=== PATIENT | female | born 1930 | race Caucasian/White ===

== ENCOUNTER 2019-01-09 15:15 | Inpatient (IN) ==
[2019-01-09] MEDS ORDERED: ALBUTEROL SULFATE 2.5 MG/0.5 ML VIAL.NEB IH PRN (16:30)
[2019-01-09] MEDS ORDERED: OXYGEN AIR DELIVERY SYSTEMS DEVICE SCH (16:30)
[2019-01-09] MEDS ORDERED: ceFAZolin SODIUM 1 GM VIAL IM ONE (16:49)
[2019-01-09 16:58] LABS: Hematocrit 36.5 % (37.0-47.0); Hemoglobin 12.3 gm/dL (12.5-16.0); Mean Cell Volume 94.1 fl (78-100); Mean Corpuscular Hemoglobin 31.7 pg (27-31); Mean Corpuscular Hgb Conc 33.7 g/dl (32-36); Mean Platelet Volume 10.3 fl (8-12.5); Neutrophil # 8.6 K/mm3 (1.3-6.0); Neutrophil % 72.8 % (42-75.0); Platelet Count 258 K/mm3 (150-450); Red Blood Count 3.88 M/mm3 (4.2-5.4); Red Cell Distribution Width 14.6 % (11.5-14.0); White Blood Count 11.8 K/mm3 (4.0-10.5)
[2019-01-09] MEDS ORDERED: CEFAZOLIN SODIUM IV SCH ×2 (17:00)
[2019-01-09] MEDS ORDERED: WATER IV SCH ×2 (17:00)
[2019-01-09] MEDS ORDERED: DEXTROSE 5% IV SCH ×2 (17:00)
[2019-01-09 17:11] LABS: INR 2.89 INR (0.92-1.08); Prothrombin Time (Patient) 27.5 Seconds (9.1-10.7)
--- NOTE | 2019-01-09 17:20 | HP ---
Chief Complaint - Chief Complaint Date of Service: 01/09/19 Time of Service: 17:07 Chief Complaint: Infection in legs History of Present Illness: 88-year-old female with past medical history of morbid obesity, hypertension, CHF, superficial stasis ulcers, peripheral vascular disease, DVT, PE, was seen in the wound clinic for her regular appointment for wound care of superficial lower extremity ulcers and was found to have worsening signs of infection of her lower extremities with superior eating ulcers with drainage of foul odorous fluid and accompanying significant erythema that extends from her ankles to her suprapatellar region. Patient was also noted to have significant pedal edema all the way up to her knees and tenderness to palpation. Patient is treated regularly for the ulcers in her lower extremities but was noted to have these signs and symptoms on Monday when she came in for routine treatment. Patient was started on antibiotics but today was noted that she actually got worse and is now complaining of pain in the extremities. She denies fever or chills or any other symptoms besides the pain in her extremities. It was explained to patient that at home treatment would not be adequate to treat such as significant infection and she was convinced to be placed inpatient for IV antibiotics. Medical History (Updated 01/07/19 @ 16:29 by PATRICIA Mattson) Pulmonary embolism (Resolved) Onset Date: ~2002 DVT Pulmonary embolism (Chronic) Onset Date: ~2000 Hypertension (Chronic) Onset Date: Unknown Hyperlipidemia (Chronic) Onset Date: Unknown H/O gastroesophageal reflux (GERD) (Chronic) Onset Date: Unknown Diabetes mellitus (Chronic) Onset Date: ~2011 Type 2 Congestive heart failure (Chronic) Onset Date: Unknown venous insufficiency NI (obstructive sleep apnea) Onset Date: 06/16/15 auto CPAP [id number] Obesity Onset Date: ~2014 BMI 45- 2015 Osteoarthritis Onset Date: Unknown Surgical History: Surgical History (Updated 11/21/18 @ 15:25 by PATRICIA Mattson) Carpal tunnel syndrome Onset Date: Unknown right and left 12/2008, 05/2009 Colonoscopy planned Onset Date: ~[address] Mijares H/O dilation and curettage Onset Date: ~1960 H/O knee surgery Onset Date: Unknown History of appendectomy Onset Date: ~1988 History of cataract surgery Onset Date: ~2003 bilateral S/P right knee arthroscopy Onset Date: ~1996 Family History: Family History (Updated 03/12/18 @ 15:23 by Allie Holguin RN) Brother , Age 82 Myocardial infarction Brother Cancer Pancreatic Daughter Breast cancer, Onset Age: 47 Father Emphysema lung Smoking Mother , age 82 Cancer throat Heart problem Sister , age 60 Cancer lung and colon Son No problems noted. Social History: Patient Lives/Resources Home / son Utilized Occupation Retired Preferred Language Spanish Do you have any denominational or Yes: Evangelical cultural preference? Smoking Status Never smoker Have you smoked in the past 12 No months Abuse History No History of abuse Psych History No pertinent hx (Last Updated 11/22/18 @ 11:42 by Reena Bai MD) No Social History Section defined Peds Patient Hx - Developmental: No Pertinent Hx Peds Patient Hx - Medical: No Pertinent Hx Peds Patient Hx - Cardiac/Respiratory: No Pertinent Hx Peds Patient Hx - Surgical: No Surgical History Patient History - Cancer: No Hx of Cancer Review Of Systems (GEN) - Review of Systems Generalized/Overall Review: Present: No Symptoms Reported EENTM: Present: No Symptoms Reported Respiratory: Present: No Symptoms Reported Cardiac: Present: No Symptoms Reported Abdominal: Present: No Symptoms Reported Genitourinary: Present: No Symptoms Reported Musculoskeletal: Present: Joint Pain Neurological: Present: No Symptoms Reported Skin: Present: Lesions, Change in Color, Other - Draining ulcers in lower extremities with significant redness Endocrine: Present: No Symptoms Reported Immunizations: IMMUNIZATION HX Immunizations Up to Date Allergies/Adverse Reactions: Allergies Allergy/AdvReac Type Severity Reaction Status Date / Time ciprofloxacin [From Cipro] Allergy Nausea/Rash Verified 01/09/19 16:51 /Vertigo codeine Allergy Other Verified 01/09/19 16:51 ibuprofen [From Motrin] Allergy Verified 01/09/19 16:51 Sulfa (Sulfonamide Allergy Hives Verified 01/09/19 16:51 Antibiotics) Home Medications: HOME MEDICATIONS Acetaminophen [Tylenol] 650 mg PO Q6H PRN 10/06/15 [Last Taken Unknown] Cholecalciferol (Vitamin D3) [Vitamin D3] 5,000 unit PO DAILY 10/06/15 [Last Taken 09/17/18] Loratadine [Claritin] 10 mg PO DAILY 10/06/15 [Last Taken 09/17/18] albuterol sulfate 2.5 mg/3 mL (0.083 %) solution for nebulization 2.5 mg IH Q4H PRN 03/12/18 [Last Taken Unknown] calcium carbonate 300 mg (750 mg) chewable tablet 300 mg PO DAILY tab 03/12/18 [Last Taken Unknown] oxygen-air delivery systems device See Dose Instructions .ROUTE .MEDSUPPLY #1 03/12/18 [Last Taken Unknown] walker See Dose Instructions .ROUTE .MEDSUPPLY #1 ea 03/12/18 [Last Taken 09/17/18] denosumab 60 mg/mL subcutaneous syringe 60 mg SUB-Q [id number] #1 ml 05/16/18 [Last Taken Unknown] bupropion HCl XL 300 mg 24 hr tablet, extended release 300 mg PO DAILY #90 tab 06/18/18 [Last Taken 09/17/18] atorvastatin 20 mg tablet 20 mg PO DAILY #90 tab 08/17/18 [Last Taken 09/17/18] Metoprolol Succinate 25 mg PO HS 09/17/18 [Last Taken 09/16/18] warfarin 3 mg tablet 3 mg PO DAILY #30 tab 10/03/18 [Last Taken Unknown] warfarin 5 mg tablet 5 mg PO ONCE #1 tab 10/23/18 [Last Taken Unknown] warfarin 4 mg tablet 4 mg PO .QMWTHFSASU #30 tab 10/29/18 [Last Taken Unknown] famotidine 20 mg tablet See Rx Instructions .ROUTE .COMPLEX #60 tablet 11/14/18 [Last Taken Unknown] miconazole nitrate 2 % topical cream 1 applic TP BID #28 g 11/22/18 [Last Taken Unknown] furosemide 20 mg tablet See Rx Instructions .ROUTE .COMPLEX #30 tablet 12/14/18 [Last Taken Unknown] gabapentin 300 mg capsule See Rx Instructions .ROUTE .COMPLEX #60 capsule 12/14/18 [Last Taken Unknown] melatonin 5 mg tablet See Rx Instructions .ROUTE .COMPLEX #30 tab 12/14/18 [Last Taken Unknown] Levofloxacin [Levaquin] 500 mg PO DAILY #10 tab 01/07/19 [Last Taken Unknown] Exam - Exam Vital Signs: Vital Signs - Last Taken Temp 36.7 C 01/09/19 16:32 Pulse 92 01/09/19 16:32 Resp 14 01/09/19 16:32 BP 149/62 01/09/19 16:32 Pulse Ox 99 01/09/19 16:32 Constitutional: Present: Alert, Oriented x3, Cooperative, Well developed, Well nourished, No distress, Elderly, Morbidly obese ENT Exam: Present: normal ENT inspection, hearing grossly normal, pharynx normal, TMs normal Eye Exam: bilateral eye: normal inspection, PERRL, EOMI Neck: Present: non-tender, full range of motion, supple, normal inspection, trachea midline Back Exam: Present: normal inspection, no CVA tenderness, no vertebral tenderness Breasts: Present: Exam deferred Respiratory: Present: chest non-tender, lungs clear, normal breath sounds, no respiratory distress, no accessory muscle use Cardiovascular/Chest: Present: normal peripheral pulses, regular rate, rhythm, no chest tenderness, no edema, edema - Bilateral pedal edema 3+ Peripheral Pulses: carotid (R): 3+, carotid (L): 3+, femoral (R): 3+, femoral (L): 3+, dorsalis-pedis (R): 2+, dorsalis-pedis (L): 2+ Abdomen: Present: Normal bowel sounds, soft, nontender, nondistended, no rebound tenderness, no hepatospenomegaly, obese /Rectal: Present: Exam deferred Extremity: Present: inflammation, lower extremity edema, leg pain, pedal edema, slow capillary refill, swelling Skin Exam: Present: other - Bilateral superficial draining ulcers of lower extremities surrounded by significant erythema with foul odor. 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 nml as tested, normal cerebellar test, no motor/sensory deficits, alert, normal mood/affect, oriented x 3 Appearance: Present: appropriate appearance, appropriate insight, neat, no memory impairment Eye contact: Present: cooperative, good eye contact, normal speech Thoughts: Present: normal thought pattern, no apparent hallucination Diagnostic Studies: Abnormal Lab Results 01/09/19 Range/Units 16:40 WBC 11.8 H D (4.0-10.5) K/mm3 RBC 3.88 L (4.2-5.4) M/mm3 Hgb 12.3 L (12.5-16.0) gm/dL Hct 36.5 L (37.0-47.0) % MCH 31.7 H (27-31) pg RDW 14.6 H (11.5-14.0) % Immature Gran % (Auto) 0.70 H (0.001-0.429) % Immature Gran # (Auto) 0.08 H (0.000-0.0310) K/mm3 Lymphocytes % 14.3 L (20-51) % Monocytes % 10.8 H (0.0-9) % Neutrophils # 8.6 H (1.3-6.0) K/mm3 Monocytes # 1.3 H (0.0-1.0) k/mm3 Laboratory Results WBC 11.8 K/mm3 (4.0-10.5) H D 01/09/19 16:40 RBC 3.88 M/mm3 (4.2-5.4) L 01/09/19 16:40 Hgb 12.3 gm/dL (12.5-16.0) L 01/09/19 16:40 Hct 36.5 % (37.0-47.0) L 01/09/19 16:40 MCV 94.1 fl (78-100) 01/09/19 16:40 MCH 31.7 pg (27-31) H 01/09/19 16:40 MCHC 33.7 g/dl (32-36) 01/09/19 16:40 RDW 14.6 % (11.5-14.0) H 01/09/19 16:40 Plt Count 258 K/mm3 (150-450) 01/09/19 16:40 MPV 10.3 fl (8-12.5) 01/09/19 16:40 Immature Gran % (Auto) 0.70 % (0.001-0.429) H 01/09/19 16:40 Immature Gran # (Auto) 0.08 K/mm3 (0.000-0.0310) H 01/09/19 16:40 72.8 % (42-75.0) 01/09/19 16:40 14.3 % (20-51) L 01/09/19 16:40 10.8 % (0.0-9) H 01/09/19 16:40 1.1 % (0.0-3.0) 01/09/19 16:40 0.3 % (0.0-1.0) 01/09/19 16:40 Nucleated RBC % 0.0 k/mm3 (0-1) 01/09/19 16:40 8.6 K/mm3 (1.3-6.0) H 01/09/19 16:40 1.68 k/mm3 (1.5-3.5) 01/09/19 16:40 1.3 k/mm3 (0.0-1.0) H 01/09/19 16:40 0.1 k/mm3 (0.0-0.7) 01/09/19 16:40 Absolute Basophils 0.0 k/mm3 (0.0-0.1) 01/09/19 16:40 Assessment/Plan - Narrative Narrative: Patient was evaluated and medical chart was reviewed and decision to admit with a diagnosis of bilateral lower extremity cellulitis was taken. Patient will be treated with IV antibiotics per culture results. She is currently growing a gram-negative organism and beta-hemolytic strep therefore appropriate antibiotics were added to her treatment. Patient was also found to have acute renal failure superimposed on chronic kidney disease on her last labs, therefore we will treat her with IV fluids for maximum hydration at a controlled rate to avoid fluid overload. Labs have been ordered to evaluate WBCs and electrolytes as well as kidney function. We will wait for final culture results and adjust antibiotics accordingly. - Assessment/Plan (1) Bilateral lower leg cellulitis Problem: Acute (2) Acute renal failure Problem: Acute (3) Chronic kidney disease (CKD) Problem: Acute (4) Diabetes mellitus Problem: Chronic Qualifiers:
[2019-01-09 17:29] LABS: Albumin * 2.6 gm/dl (3.4-5.0); Anion Gap 17.5 mmol/L (6.8-13.8); BUN/Creatinine Ratio 16.7 (9.0-21.6); Bilirubin, Total 0.6 mg/dL (0.0-1.1); Ca. Corrected For Albumin 9.5 mg/dL (8.4-10.2); Calcium * 8.7 mg/dL (7.9-10.9); Carbon Dioxide 21.3 mmol/L (24-32.6); Potassium 4.8 mmol/L (3.4-4.6); Vancomycin Trough 0.1 mcg/mL (10.0-20.0)
[2019-01-09 17:31] LABS: CRP 17.4 mg/dL (0.0-0.9)
--- NOTE | 2019-01-09 19:09 | ANES ---
Anesthesia Procedure Note Procedure Note: ANESTHESIA PROCEDURE NOTE Date of Procedure: 01/09/2019 Time of procedure: 1830. Performed by: DILCIA Chiu CRNA, MSN Preprocedure diagnosis: Cellulitis. Post procedure diagnosis: Same. Procedure: Venipuncture for IV access. Indications: Cellulitis, lack of IV access. Findings: See below. Details of the procedure: The patient was prepped with Betadine and alcohol, 0.1 mL of 1% lidocaine solution was injected at the intended IV site. A number 22- gauge was started in the left hand and flushed with saline solution. A request was given for a larger IV if possible, and the procedure was repeated on the right hand using a 20-gauge IV. EBL: Minimal. Fluids: N/A. Specimen: N/A. Post procedure condition: The patient tolerated the procedure well. No complications were noted. Thank you for this consultation. Eliu Austin CRNA, DILCIA, MSN
[2019-01-09] MEDS: NORMAL SALINE 1,000 ML IV PRN (19:30)
[2019-01-09] MEDS: traMADol HCL 50 MG TABLET PO PRN (20:38)
[2019-01-09] MEDS: VANCOMYCIN HCL 1 GM in DEXTROSE 5 % IN WATER 250 ML IV SCH ×2 (20:38)
[2019-01-09] MEDS: ACETAMINOPHEN 325 MG TABLET PO PRN (20:38)
[2019-01-09] MEDS: WARFARIN SODIUM 4 MG TABLET PO SCH (20:39)
[2019-01-09] MEDS: GABAPENTIN 300 MG CAPSULE PO SCH (20:40)
[2019-01-09] MEDS: METOPROLOL SUCCINATE 25 MG TABLET.SA PO SCH (20:40)
[2019-01-09] MEDS ORDERED: MICONAZOLE NITRATE TP SCH (21:00)
[2019-01-10 06:16] LABS: Albumin * 2.1 gm/dl (3.4-5.0); Anion Gap 12.1 mmol/L (6.8-13.8); BUN/Creatinine Ratio 17.3 (9.0-21.6); Bilirubin, Total 0.6 mg/dL (0.0-1.1); Ca. Corrected For Albumin 9.5 mg/dL (8.4-10.2); Calcium * 8.3 mg/dL (7.9-10.9); Carbon Dioxide 25.5 mmol/L (24-32.6); Potassium 4.6 mmol/L (3.4-4.6)
[2019-01-10] MEDS: ACETAMINOPHEN 325 MG TABLET PO PRN ×3 (07:27→20:59)
[2019-01-10] MEDS: buPROPion HCL 150 MG TAB.SR.24H PO SCH (09:26)
[2019-01-10] MEDS: LORATADINE 10 MG TABLET PO SCH (09:26)
[2019-01-10] MEDS: DOCUSATE SODIUM 100 MG CAPSULE PO SCH (09:26)
[2019-01-10] MEDS: ROSUVASTATIN CALCIUM 10 MG TABLET PO SCH (09:26)
[2019-01-10] MEDS: FUROSEMIDE 20 MG TABLET PO SCH (09:26)
[2019-01-10] MEDS: CHOLECALCIFEROL 5,000 UNIT TABLET PO SCH (09:26)
[2019-01-10] MEDS: GABAPENTIN 300 MG CAPSULE PO SCH ×2 (09:26→21:13)
[2019-01-10] MEDS: CALCIUM CARBONATE 500 MG TAB.CHEW PO SCH (09:26)
[2019-01-10 09:56] LABS: Hematocrit 32.6 % (37.0-47.0); Hemoglobin 10.6 gm/dL (12.5-16.0); Mean Cell Volume 96.2 fl (78-100); Mean Corpuscular Hemoglobin 31.3 pg (27-31); Mean Corpuscular Hgb Conc 32.5 g/dl (32-36); Mean Platelet Volume 11.4 fl (8-12.5); Neutrophil # 7.1 K/mm3 (1.3-6.0); Neutrophil % 75.5 % (42-75.0); Platelet Count 215 K/mm3 (150-450); Red Blood Count 3.39 M/mm3 (4.2-5.4); Red Cell Distribution Width 14.6 % (11.5-14.0); White Blood Count 9.5 K/mm3 (4.0-10.5)
--- NOTE | 2019-01-10 10:46 | PN ---
Subjective - Date and Time Seen Date: 01/10/19 Time: 10:32 Subjective Narrative: I feel better but I still have pain Objective Objective Narrative: 88-year-old female admitted for bilateral lower extremity cellulitis, and acute renal failure superimposed on chronic kidney disease was evaluated at bedside and was found to be afebrile and in no acute distress. Patient continues to have significant infection superficial venous ulcers in both lower extremities and marked tenderness to palpation. She still has significant surrounding erythema infrapatellar region and requires oral analgesics around the clock to control pain this morning labs demonstrate improvement in her WBCs and renal function, however her GFR has not returned to baseline. Wound culture demonstrates growth of multiple organisms so IV antibiotics were started accordingly. Daily monitoring of her INR was also ordered for adequate anticoagulation for recurrent DVT. - Review of Systems Generalized/Overall Review: Reports: No Symptoms Reported EENTM: Reports: No Symptoms Reported Respiratory: Reports: No Symptoms Reported Cardiac: Reports: No Symptoms Reported Abdominal: Reports: No Symptoms Reported Genitourinary Symptoms: Reports: No Symptoms Reported Musculoskeletal Complaints: Reports: Joint Pain Neurological: Reports: No Symptoms Reported Skin: Reports: Lesions, Change in Color - Marked tenderness and pain in lower extremities. Endocrine: Reports: No Symptoms Reported - Vitals Vitals: Last Vital Signs Temp 36.7 C 01/10/19 08:00 Pulse 86 01/10/19 09:26 Resp 20 01/10/19 08:00 BP 136/68 01/10/19 09:26 Pulse Ox 99 01/10/19 08:00 - Abnormal Lab Findings Abnormal Lab Findings: Abnormal Lab Results 01/09/19 01/09/19 01/09/19 Range/Units 16:40 16:48 16:48 WBC 11.8 H D (4.0-10.5) K/mm3 RBC 3.88 L (4.2-5.4) M/mm3 Hgb 12.3 L (12.5-16.0) gm/dL Hct 36.5 L (37.0-47.0) % MCH 31.7 H (27-31) pg RDW 14.6 H (11.5-14.0) % Immature Gran % (Auto) 0.70 H (0.001-0.429) % Immature Gran # (Auto) 0.08 H (0.000-0.0310) K/mm3 Neutrophils % (42-75.0) % Lymphocytes % 14.3 L (20-51) % Monocytes % 10.8 H (0.0-9) % Neutrophils # 8.6 H (1.3-6.0) K/mm3 Lymphocytes # (1.5-3.5) k/mm3 Monocytes # 1.3 H (0.0-1.0) k/mm3 ESR (0-15) mm/hr PT 27.5 H (9.1-10.7) Seconds INR (Anticoag Therapy) 2.89 H (0.92-1.08) INR Potassium 4.8 H (3.4-4.6) mmol/L Carbon Dioxide 21.3 L (24-32.6) mmol/L Anion Gap 17.5 H (6.8-13.8) mmol/L BUN 36 H (3-23) mg/dL Creatinine 2.15 H (0.4-1.4) mg/dL Est GFR (Non-Af Amer) 23 L (60-130) mL/min Random Glucose 164 H (70-110) mg/dL C-Reactive Prot, Quant 17.4 H (0.0-0.9) mg/dL Total Protein (6.2-8.2) gm/dL Albumin 2.6 L (3.4-5.0) gm/dl Vancomycin Trough 0.1 L (10.0-20.0) mcg/mL 01/09/19 01/10/19 01/10/19 Range/Units 16:48 05:53 09:41 WBC (4.0-10.5) K/mm3 RBC 3.39 L (4.2-5.4) M/mm3 Hgb 10.6 L (12.5-16.0) gm/dL Hct 32.6 L (37.0-47.0) % MCH 31.3 H (27-31) pg RDW 14.6 H (11.5-14.0) % Immature Gran % (Auto) 0.50 H (0.001-0.429) % Immature Gran # (Auto) 0.05 H (0.000-0.0310) K/mm3 Neutrophils % 75.5 H (42-75.0) % Lymphocytes % 11.9 L (20-51) % Monocytes % 10.1 H (0.0-9) % Neutrophils # 7.1 H (1.3-6.0) K/mm3 Lymphocytes # 1.13 L (1.5-3.5) k/mm3 Monocytes # (0.0-1.0) k/mm3 ESR 108 H (0-15) mm/hr PT (9.1-10.7) Seconds INR (Anticoag Therapy) (0.92-1.08) INR Potassium (3.4-4.6) mmol/L Carbon Dioxide (24-32.6) mmol/L Anion Gap (6.8-13.8) mmol/L BUN 29 H (3-23) mg/dL Creatinine 1.68 H D (0.4-1.4) mg/dL Est GFR (Non-Af Amer) 31 L D (60-130) mL/min Random Glucose 193 H (70-110) mg/dL C-Reactive Prot, Quant (0.0-0.9) mg/dL Total Protein 6.0 L (6.2-8.2) gm/dL Albumin 2.1 L (3.4-5.0) gm/dl Vancomycin Trough (10.0-20.0) mcg/mL - Exam Constitutional: Present: Alert, Oriented x3, Cooperative, Well developed, Well nourished, No distress, Elderly, Morbidly obese ENT Exam: Present: normal ENT inspection, hearing grossly normal, pharynx normal, TMs normal Neck: Present: non-tender, full range of motion, supple, normal inspection, trachea midline Breasts: Present: Exam deferred Respiratory: Present: chest non-tender, lungs clear, normal breath sounds, no respiratory distress, no accessory muscle use Cardiovascular/Chest: Present: normal peripheral pulses, regular rate, rhythm, no chest tenderness, no edema, no gallop, no JVD, no murmur Abdomen: Present: obese /Rectal: Present: Exam deferred Extremity: Present: lower extremity edema, leg pain, pedal edema, swelling Skin Exam: Present: other - Multiple infected stasis ulcers with drainage of foul-smelling fluid and surrounding erythema. 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 Follow-up labs were ordered to evaluate WBCs ESR CRP as well as kidney function. Patient's GFR has improved but has not returned to baseline so additional IV fluids will be ordered. Patient will continue to be treated by the wound care team for her superficial venous ulcers while in the inpatient care unit. Her infection continues to be severe given the marked erythema tenderness and pain that the patient is presenting. For this reason I believe patient should remain in the inpatient services to continue receiving treatment for her illness. - Problems/Diagnosis (1) Bilateral lower leg cellulitis Problem: Acute (2) Acute renal failure Problem: Acute (3) Chronic kidney disease (CKD) Problem: Acute (4) Diabetes mellitus Problem: Chronic Qualifiers:
[2019-01-10] MEDS: NORMAL SALINE 1,000 ML IV PRN (10:47)
[2019-01-10] MEDS ORDERED: NORMAL SALINE 1,000 ML IV PRN (10:47)
[2019-01-10 11:43] LABS: Prothrombin Time (Patient) 26.3 Seconds (9.1-10.7)
[2019-01-10 11:45] LABS: INR 2.76 INR (0.92-1.08)
[2019-01-10] MEDS: INSULIN REGULAR, HUMAN 100 UNITS/ML VIAL SC SCH ×3 (11:58→21:15)
--- NOTE | 2019-01-10 12:58 | CONS ---
[facility] - General Date of Service: 01/10/19 Narrative: Patient is an 88-year-old female, recently admitted to the hospital regarding cellulitis of the lower extremities. She is a long-standing visitor to the [facility], and was evaluated immediately prior to her admission. Unfortunately, the patient struggles with chronic venous insufficiency and has developed multiple venous stasis ulcers. In the recent months, she is also chronically infected with various bacterial organisms. She was placed on an antibiotic earlier in the week, however this was not beneficial to improving her symptoms. She does respond well to compression. In addition to swelling and drainage, the patient has moderate pain associated with the areas. Source: patient Exam Limitations: no limitations - History of Present Illness Timing/Duration: getting worse Associated Symptoms: denies symptoms Allergies/Adverse Reactions: Allergies ciprofloxacin [From Cipro] Allergy (Verified 01/18/19 14:58) Nausea/Rash/Vertigo codeine Allergy (Verified 01/18/19 14:58) Other AMS ibuprofen [From Motrin] Allergy (Verified 01/18/19 14:58) Sulfa (Sulfonamide Antibiotics) Allergy (Verified 01/18/19 14:58) Hives Home Medications: Home Medications Medication Instructions Recorded Last Taken Acetaminophen [Tylenol] 650 mg PO Q6H PRN 10/06/15 Unknown Cholecalciferol (Vitamin D3) 5,000 unit PO DAILY 10/06/15 09/17/18 [Vitamin D3] Loratadine [Claritin] 10 mg PO DAILY 10/06/15 09/17/18 albuterol sulfate 2.5 mg/3 mL 2.5 mg IH Q4H PRN 03/12/18 Unknown (0.083 %) solution for nebulization calcium carbonate 300 mg (750 mg) 300 mg PO DAILY PRN tab 03/12/18 Unknown chewable tablet oxygen-air delivery systems device See Dose Instructions .ROUTE 03/12/18 Unknown .MEDSUPPLY #1 walker See Dose Instructions .ROUTE 03/12/18 09/17/18 .MEDSUPPLY #1 ea denosumab 60 mg/mL subcutaneous 60 mg SUB-Q [id number] #1 ml 05/16/18 05/24/18 syringe bupropion HCl XL 300 mg 24 hr 300 mg PO DAILY #90 tab 06/18/18 09/17/18 tablet, extended release atorvastatin 20 mg tablet 20 mg PO DAILY #90 tab 08/17/18 09/17/18 Metoprolol Succinate 25 mg PO HS 09/17/18 09/16/18 warfarin 4 mg tablet 4 mg PO .[id number] #30 tab 10/29/18 Unknown Cranberry 500 mg PO DAILY 01/10/19 Unknown Docusate Sodium [Stool Softener] 100 mg PO DAILY 01/10/19 Unknown Famotidine 20 mg PO BID 01/10/19 Unknown Multivitamin/Iron/Folic Acid 1 ea PO DAILY 01/10/19 Unknown [Centrum Adults Tablet] Warfarin Sodium 2 mg PO TU 01/10/19 Unknown Chlorhexidine Gluconate 237 ml TOPICAL BID #30 liquid 01/11/19 Unknown [Antiseptic Skin Cleanser] Triamcinolone Acetonide [Kenalog 1 appl TOPICAL DAILY #30 tube 01/11/19 Unknown 0.1% Cream] gabapentin 300 mg capsule 300 mg PO BID #180 cap 01/11/19 Unknown melatonin 5 mg tablet 5 mg PO HS #90 tab 01/11/19 Unknown Mometasone Furoate 1 appl TOPICAL BID #60 cream..g. 01/16/19 Unknown furosemide 40 mg tablet 40 mg PO DAILY #60 tab 01/18/19 Unknown levofloxacin 750 mg tablet 750 mg PO .QOD #7 tab 01/18/19 Unknown Procedures Arthroplasty of carpocarpal or carpometacarpal joint with implant (05/29/09) Colonoscopy (05/15/09) Exploration of tendon sheath of hand (12/05/08) Insertion of intraocular lens prosthesis at time of cataract extraction, one- stage (04/24/07) Measurement of systemic arterial blood gases (12/11/00) Metacarpocarpal fusion (05/29/09) Phacoemulsification and aspiration of cataract (04/24/07) Release of carpal tunnel (05/29/09) Medications - Medications Current Medications: Current Medications Acetaminophen (Tylenol) 650 mg PO Q6H PRN PRN Reason: Mild pain (pain scale 1-3) Stop: 02/08/19 16:30 Last Admin: 01/10/19 07:27 Dose: 650 mg Documented by: Bupropion HCl (Wellbutrin Xl) 300 mg PO DAILY [facility] Stop: 02/09/19 09:01 Last Admin: 01/10/19 09:26 Dose: 300 mg Documented by: Calcium Carbonate/Glycine (Tums) 500 mg PO DAILY [facility] Stop: 02/09/19 09:01 Last Admin: 01/10/19 09:26 Dose: 500 mg Documented by: Cholecalciferol (Vitamin D) 5,000 unit PO DAILY [facility] Stop: 02/09/19 09:01 Last Admin: 01/10/19 09:26 Dose: 5,000 unit Documented by: Docusate Sodium (Colace) 100 mg PO DAILY [facility] Stop: 02/09/19 09:01 Last Admin: 01/10/19 09:26 Dose: 100 mg Documented by: Furosemide (Lasix) 20 mg PO DAILY [facility] Stop: 02/09/19 09:01 Last Admin: 01/10/19 09:26 Dose: 20 mg Documented by: Gabapentin (Neurontin) 300 mg PO BID [facility] Stop: 02/08/19 21:01 Last Admin: 01/10/19 09:26 Dose: 300 mg Documented by: Sodium Chloride (Sodium Chloride 0.9%) 1,000 mls @ 80 mls/hr IV .[id number] PRN PRN Reason: HYDRATION Stop: 02/08/19 16:44 Last Admin: 01/10/19 10:47 Dose: 80 mls/hr Documented by: Vancomycin HCl 1 gm/ Dextrose/ (Water) 250 mls @ 140 mls/hr IV Q24H [facility]; Protocol Stop: 02/08/19 18:01 Last Admin: 01/09/19 20:38 Dose: 140 mls/hr Documented by: Ceftriaxone Sodium 1,000 mg/ (Dextrose/Water) 100 mls @ 200 mls/hr IV Q24H [facility] Stop: 02/08/19 17:46 Last Admin: 01/09/19 19:29 Dose: 200 mls/hr Documented by: Insulin Human Regular (Humulin R) 0 units SC ACHSINS [facility]; Protocol Stop: 02/09/19 12:01 Last Admin: 01/10/19 11:58 Dose: 8 units Documented by: Loratadine (Claritin) 10 mg PO DAILY [facility] Stop: 02/09/19 09:01 Last Admin: 01/10/19 09:26 Dose: 10 mg Documented by: Metoprolol Succinate (Toprol Xl) 25 mg PO HS [facility] Stop: 02/08/19 21:01 Last Admin: 01/09/19 20:40 Dose: 25 mg Documented by: Melatonin 5 Mg 5 mg PO HS [facility] Stop: 02/08/19 21:01 Last Admin: 01/09/19 20:40 Dose: Not Given Documented by: Rosuvastatin Calcium (Crestor) 10 mg PO DAILY [facility] Stop: 02/09/19 09:01 Last Admin: 01/10/19 09:26 Dose: 10 mg Documented by: Tramadol HCl (Ultram) 50 mg PO Q6H PRN PRN Reason: Pain Stop: 02/08/19 17:56 Last Admin: 01/09/19 20:38 Dose: 50 mg Documented by: Warfarin Sodium (Coumadin) 4 mg PO [email or web address] [facility] Stop: 02/08/19 18:31 Last Admin: 01/09/19 20:39 Dose: 4 mg Documented by: Review of Systems - Review of Systems Generalized/Overall Review: Present: Weakness. Absent: Chills EENTM: Absent: Nose Congestion Respiratory: Present: Shortness of Breath. Absent: Cough Cardiac: Present: Edema. Absent: Chest Pain Abdominal: Absent: Nausea, Vomiting Musculoskeletal: Present: Muscle Pain Neurological: Absent: Headache, Numbness, Tingling Skin: Present: Lesions Physical Examination - Exam Vital Signs: Vital Signs - Last Taken Temp 36.9 C 01/10/19 11:00 Pulse 80 01/10/19 11:00 Resp 20 01/10/19 11:00 BP 131/62 01/10/19 11:00 Pulse Ox 99 01/10/19 11:00 O2 Oxygen Delivery Method Room Air Constitutional: Present: Alert, Oriented x3, No distress, Morbidly obese ENT Exam: Present: hearing grossly normal Skin Exam: Present: other - Bilateral lower extremities are edematous, with moderate serous drainage. There are multiple superficial areas that are open and draining. Erythema from the toes to below the knee - Results and Findings: Lab/Microbiology results last 24 hrs: Abnormal/Pending Laboratory Last 24 HRS 01/10/19 01/10/19 01/10/19 09:41 05:53 05:30 WBC RBC 3.39 L Hgb 10.6 L Hct 32.6 L MCH 31.3 H RDW 14.6 H Immature Gran % (Auto) 0.50 H Immature Gran # (Auto) 0.05 H Neutrophils % 75.5 H Lymphocytes % 11.9 L Monocytes % 10.1 H Neutrophils # 7.1 H Lymphocytes # 1.13 L Monocytes # ESR PT 26.3 H INR (Anticoag Therapy) 2.76 H Potassium Carbon Dioxide Anion Gap BUN 29 H Creatinine 1.68 H D Est GFR (Non-Af Amer) 31 L D Random Glucose 193 H C-Reactive Prot, Quant Total Protein 6.0 L Albumin 2.1 L Vancomycin Trough 01/09/19 01/09/19 01/09/19 16:48 16:48 16:48 WBC RBC Hgb Hct MCH RDW Immature Gran % (Auto) Immature Gran # (Auto) Neutrophils % Lymphocytes % Monocytes % Neutrophils # Lymphocytes # Monocytes # ESR 108 H PT 27.5 H INR (Anticoag Therapy) 2.89 H Potassium 4.8 H Carbon Dioxide 21.3 L Anion Gap 17.5 H BUN 36 H Creatinine 2.15 H Est GFR (Non-Af Amer) 23 L Random Glucose 164 H C-Reactive Prot, Quant 17.4 H Total Protein Albumin 2.6 L Vancomycin Trough 0.1 L 01/09/19 16:40 WBC 11.8 H D RBC 3.88 L Hgb 12.3 L Hct 36.5 L MCH 31.7 H RDW 14.6 H Immature Gran % (Auto) 0.70 H Immature Gran # (Auto) 0.08 H Neutrophils % Lymphocytes % 14.3 L Monocytes % 10.8 H Neutrophils # 8.6 H Lymphocytes # Monocytes # 1.3 H ESR PT INR (Anticoag Therapy) Potassium Carbon Dioxide Anion Gap BUN Creatinine Est GFR (Non-Af Amer) Random Glucose C-Reactive Prot, Quant Total Protein Albumin Vancomycin Trough - Assessments/Findings (1) Bilateral lower leg cellulitis Diagnosis(s): In our office, prior to admission Aquasol AG was placed on the lower extremities to control for drainage. The patient is experiencing increased pain. Therefore, recommend changing the dressing to mometasone or triamcinolone, if the previous is unavailable. This will be applied to bilateral lower extremities daily, covered with ABD pads and secured with Tubigrip. They will wash the legs with chlorhexidine at dressing changes. The patient is encouraged to keep her legs elevated as much as possible. We will be happy to continue her care at the [facility] upon discharge. Problem: Chronic
[2019-01-10] MEDS: TRIAMCINOLONE ACETONIDE 15 APPL TUBE TP SCH (14:34)
[2019-01-10] MEDS: WARFARIN SODIUM 4 MG TABLET PO SCH (17:12)
[2019-01-10] MEDS: NYSTATIN 15 APPL BTL TP SCH ×2 (17:14→21:13)
[2019-01-10] MEDS: VANCOMYCIN HCL 1 GM in DEXTROSE 5 % IN WATER 250 ML IV SCH ×2 (17:59)
[2019-01-10] MEDS: traMADol HCL 50 MG TABLET PO PRN (20:59)
[2019-01-10] MEDS: METOPROLOL SUCCINATE 25 MG TABLET.SA PO SCH (21:14)
[2019-01-11] MEDS: NORMAL SALINE 1,000 ML IV PRN (01:30)
[2019-01-11 05:39] LABS: Hematocrit 32.2 % (37.0-47.0); Hemoglobin 10.4 gm/dL (12.5-16.0); Mean Cell Volume 95.5 fl (78-100); Mean Corpuscular Hemoglobin 30.9 pg (27-31); Mean Corpuscular Hgb Conc 32.3 g/dl (32-36); Mean Platelet Volume 10.4 fl (8-12.5); Neutrophil # 6.6 K/mm3 (1.3-6.0); Neutrophil % 72.6 % (42-75.0); Platelet Count 225 K/mm3 (150-450); Red Blood Count 3.37 M/mm3 (4.2-5.4); Red Cell Distribution Width 14.4 % (11.5-14.0); White Blood Count 9.1 K/mm3 (4.0-10.5)
[2019-01-11 05:43] LABS: Prothrombin Time (Patient) 32.8 Seconds (9.1-10.7)
[2019-01-11 05:44] LABS: INR 3.48 INR (0.92-1.08)
[2019-01-11 05:48] LABS: Albumin * 2.1 gm/dl (3.4-5.0); Anion Gap 11.6 mmol/L (6.8-13.8); BUN/Creatinine Ratio 19.3 (9.0-21.6); Bilirubin, Total 0.3 mg/dL (0.0-1.1); CRP 11.6 mg/dL (0.0-0.9); Ca. Corrected For Albumin 9.5 mg/dL (8.4-10.2); Calcium * 8.3 mg/dL (7.9-10.9); Carbon Dioxide 23.9 mmol/L (24-32.6); Potassium 4.5 mmol/L (3.4-4.6)
[2019-01-11] MEDS: INSULIN REGULAR, HUMAN 100 UNITS/ML VIAL SC SCH ×2 (06:44→11:57)
--- NOTE | 2019-01-11 08:44 | DS ---
(1) Bilateral lower leg cellulitis Problem: Chronic (2) Acute renal failure Problem: Resolved (3) Chronic kidney disease (CKD) Problem: Chronic (4) Diabetes mellitus Problem: Chronic Qualifiers: Description of Stay: 88-year-old female admitted for bilateral lower extremity cellulitis, acute renal failure superimposed on chronic renal failure stage IIIb was evaluated at bedside and was found to be afebrile and no acute distress. Patient has demonstrated significant improvement since being admitted and treated with IV antibiotics and IV fluids. Her GFR has returned to baseline and electrolytes are within normal limits indicating resolution of her acute kidney injury. After treating patient with IV antibiotics, her WBCs are now within normal limits and she reports less pain. Patient continued to receive care from the wound care clinic and they report improvement in her superficial ulcers and the condition of her cellulitis. Given all these findings, decision to di scharge patient home was taken. She will be discharged with oral antibiotics to continue treating the cellulitis and instructions to continue attending the wound care clinic for treatment of her ulcers. Patient will also be scheduled for follow-up appointment with her PCP for reevaluation. After evaluation of patient decision to discharge with [facility] for medication management and wound care as well as overall health monitoring was taken. Patient is homebound due to limited mobility and problems with balance as well as morbid obesity, patient agreed to receive services from [facility] Home Health arrangements are being made. The need for home health care skilled services is directly related to the time spent [id number] with the patient. Procedures Performed: none Results and Findings: Lab Pending Results 01/09/19 16:40: WBC 11.8 H D, RBC 3.88 L, Hgb 12.3 L, Hct 36.5 L, MCV 94.1, MCH 31.7 H, MCHC 33.7, RDW 14.6 H, Plt Count 258, MPV 10.3, Immature Gran % (Auto) 0.70 H, Immature Gran # (Auto) 0.08 H, Neutrophils % 72.8, Lymphocytes % 14.3 L, Monocytes % 10.8 H, Eosinophils % 1.1, Basophils % 0.3, Nucleated RBC % 0.0, Neutrophils # 8.6 H, Lymphocytes # 1.68, Monocytes # 1.3 H, Eosinophils # 0.1, Absolute Basophils 0.0 01/09/19 16:48: Sodium 133, Plasma Sodium 134, Potassium 4.8 H, Chloride 99, Carbon Dioxide 21.3 L, Anion Gap 17.5 H, BUN 36 H, Creatinine 2.15 H, Est GFR (Non-Af Amer) 23 L, BUN/Creatinine Ratio 16.7, Random Glucose 164 H, Calcium 8.7, Calcium Adj for Albumin 9.5, Total Bilirubin 0.6, AST 24, ALT 33, Alkaline Phosphatase 147, C-Reactive Prot, Quant 17.4 H, Total Protein 7.0, Albumin 2.6 L, Vancomycin Trough 0.1 L 01/09/19 16:48: PT 27.5 H, INR (Anticoag Therapy) 2.89 H 01/09/19 16:48: ESR 108 H 01/10/19 05:30: PT 26.3 H, INR (Anticoag Therapy) 2.76 H 01/10/19 05:53: Sodium 135, Plasma Sodium 136, Potassium 4.6, Chloride 102, Carbon Dioxide 25.5, Anion Gap 12.1, BUN 29 H, Creatinine 1.68 H D, Est GFR (Non-Af Amer) 31 L D, BUN/Creatinine Ratio 17.3, Random Glucose 193 H, Calcium 8.3, Calcium Adj for Albumin 9.5, Total Bilirubin 0.6, AST 18, ALT 23, Alkaline Phosphatase 126, Total Protein 6.0 L, Albumin 2.1 L 01/10/19 09:41: WBC 9.5, RBC 3.39 L, Hgb 10.6 L, Hct 32.6 L, MCV 96.2, MCH 31.3 H, MCHC 32.5, RDW 14.6 H, Plt Count 215, MPV 11.4, Immature Gran % (Auto) 0.50 H, Immature Gran # (Auto) 0.05 H, Neutrophils % 75.5 H, Lymphocytes % 11.9 L, Monocytes % 10.1 H, Eosinophils % 1.7, Basophils % 0.3, Nucleated RBC % 0.0, Neutrophils # 7.1 H, Lymphocytes # 1.13 L, Monocytes # 1.0, Eosinophils # 0.2, Absolute Basophils 0.0 01/11/19 05:32: PT 32.8 H, INR (Anticoag Therapy) 3.48 H 01/11/19 05:32: WBC 9.1, RBC 3.37 L, Hgb 10.4 L, Hct 32.2 L, MCV 95.5, MCH 30.9, MCHC 32.3, RDW 14.4 H, Plt Count 225, MPV 10.4, Immature Gran % (Auto) 0.40, Immature Gran # (Auto) 0.04 H, Neutrophils % 72.6, Lymphocytes % 14.5 L, Monocytes % 9.0, Eosinophils % 3.1 H, Basophils % 0.4, Nucleated RBC % 0.0, Neutrophils # 6.6 H, Lymphocytes # 1.31 L, Monocytes # 0.8, Eosinophils # 0.3, Absolute Basophils 0.0 01/11/19 05:32: ESR 106 H 01/11/19 05:32: Sodium 137, Plasma Sodium 137, Potassium 4.5, Chloride 106, Carbon Dioxide 23.9 L, Anion Gap 11.6, BUN 26 H, Creatinine 1.35, Est GFR (Non- Af Amer) 39 L D, BUN/Creatinine Ratio 19.3, Random Glucose 130 H D, Calcium 8.3, Calcium Adj for Albumin 9.5, Total Bilirubin 0.3, AST 16, ALT 23, Alkaline Phosphatase 138, C-Reactive Prot, Quant 11.6 H, Total Protein 6.0 L, Albumin 2.1 L Discharge Location: Home Disposition: Home Health Service Home Health Agency: [facility] Home Health Condition: Good Face to Face Encounter completed per [facility] Guidelines: Yes Discharge Activity: Activity as tolerated Discharge Diet: Consistent carbs Referrals: Reena Bai MD [Primary Care Provider] - Problem Oriented Discharge Instructions to Patient/Family: Cellulitis, Adult, E asy-to-Read Additional Patient Instructions (free text): -[facility] new at discharge. Nursing for dressing changes. Apply Triamcinolone cream to bilateral lower extremities. cover with ABD pads. secure with one layer of tubigrip. wash the bilateral lower extremities with chlorhexadine and rinse thoroughly with water, at dressing changes. elevate legs as much as possible. -Hold today's dose of Coumadin (01/11/19). -Please make TCM appointment unless halfway discharge. Thank you! Amanda @ [phone]. -Follow up appointment with Dr. Bai on 01/18/19 at 2:45pm. [facility] courtesy van will pick you up at 2:20pm. -Please keep your [facility]ound [facility] appointment on 01/16/19 at 2:45pm. [facility] courtesy van will pick you up at 2:20pm. Prescriptions (Any new or edited meds): Chlorhexidine Gluconate [Antiseptic Skin Cleanser] 237 ml TOPICAL BID #30 liquid Triamcinolone Acetonide [Kenalog 0.1% Cream] 1 appl TOPICAL DAILY #30 tube Levofloxacin [Levaquin] 750 mg PO Q48H 7 Days #7 tab Complete Home Medications List: Complete Home Medication List: Acetaminophen [Tylenol] 650 mg PO Q6H PRN 10/06/15 Cholecalciferol (Vitamin D3) [Vitamin D3] 5,000 unit PO DAILY 10/06/15 Loratadine [Claritin] 10 mg PO DAILY 10/06/15 albuterol sulfate 2.5 mg/3 mL (0.083 %) solution for nebulization 2.5 mg IH Q4H PRN 03/12/18 calcium carbonate 300 mg (750 mg) chewable tablet 300 mg PO DAILY PRN tab 03/12/18 oxygen-air delivery systems device See Dose Instructions .ROUTE .MEDSUPPLY #1 03/12/18 walker See Dose Instructions .ROUTE .MEDSUPPLY #1 ea 03/12/18 denosumab 60 mg/mL subcutaneous syringe 60 mg SUB-Q [id number] #1 ml 05/16/18 bupropion HCl XL 300 mg 24 hr tablet, extended release 300 mg PO DAILY #90 tab 06/18/18 atorvastatin 20 mg tablet 20 mg PO DAILY #90 tab 08/17/18 Metoprolol Succinate 25 mg PO HS 09/17/18 warfarin 4 mg tablet 4 mg PO .[id number] #30 tab 10/29/18 Cranberry 500 mg PO DAILY 01/10/19 Docusate Sodium [Stool Softener] 100 mg PO DAILY 01/10/19 Famotidine 20 mg PO BID 01/10/19 Furosemide 20 mg PO DAILY 01/10/19 Gabapentin 300 mg PO BID 01/10/19 Melatonin 5 mg PO HS 01/10/19 Multivitamin/Iron/Folic Acid [Centrum Adults Tablet] 1 ea PO DAILY 01/10/19 Warfarin Sodium 2 mg PO TU 01/10/19 Chlorhexidine Gluconate [Antiseptic Skin Cleanser] 237 ml TOPICAL BID #30 liquid 01/11/19 Levofloxacin [Levaquin] 750 mg PO Q48H 7 Days #7 tab 01/11/19 Triamcinolone Acetonide [Kenalog 0.1% Cream] 1 appl TOPICAL DAILY #30 tube 01/11/19
[2019-01-11] MEDS: CALCIUM CARBONATE 500 MG TAB.CHEW PO SCH (09:49)
[2019-01-11] MEDS: buPROPion HCL 150 MG TAB.SR.24H PO SCH (09:49)
[2019-01-11] MEDS: ROSUVASTATIN CALCIUM 10 MG TABLET PO SCH (09:49)
[2019-01-11] MEDS: GABAPENTIN 300 MG CAPSULE PO SCH (09:49)
[2019-01-11] MEDS: DOCUSATE SODIUM 100 MG CAPSULE PO SCH (09:49)
[2019-01-11] MEDS: FUROSEMIDE 20 MG TABLET PO SCH (09:49)
[2019-01-11] MEDS: TRIAMCINOLONE ACETONIDE 15 APPL TUBE TP SCH (09:49)
[2019-01-11] MEDS: LORATADINE 10 MG TABLET PO SCH (09:49)
[2019-01-11] MEDS: CHOLECALCIFEROL 5,000 UNIT TABLET PO SCH (09:49)
[2019-01-11] MEDS: NYSTATIN 15 APPL BTL TP SCH (09:50)
[2019-01-11] MEDS: ACETAMINOPHEN 325 MG TABLET PO PRN (09:54)
[2019-01-11 12:47] VITALS: BP 116/62
[2019-01-15] MEDS ORDERED: WARFARIN SODIUM 2 MG TABLET PO SCH (17:00)
== END 2019-01-11 13:00 | disposition home health service (06) | DRG 603 ==
LOC: MS 15:15
PROVIDERS: ADMIT Family Medicine; ATTEND Family Medicine
CPT/HCPCS: 36415; 80053; 80202; 85025; 85610; 85652; 86140; 87081; 94660